=== PATIENT | male | born 1985 | race Caucasian/White ===

== ENCOUNTER → 2017-04-21 | Outpatient (CLI) | payer OTHER ==
[2017-04-21 12:22] LABS: HEMATOCRIT 46.4 % (42-52); MEAN CELL VOLUME 74.7 fL (80-100); MEAN CORPUSCULAR HEMOGLOBIN 24.8 pg (25-34); MEAN CORPUSCULAR HGB CONC 33.2 g/dl (32-36); MEAN PLATELET VOLUME 8.8 fL (7.4-10.4); PLATELET COUNT 252 K/uL (130-400); RED BLOOD COUNT 6.21 M/uL (4.7-6.1); WHITE BLOOD COUNT 7.18 K/uL (4.8-10.8)
[2017-04-21 12:49] LABS: ALT/SGPT 51 U/L (12-78); AST/SGOT 22 U/L (15-37); BLOOD UREA NITROGEN 20 mg/dl (7-18); BUN/CREATININE RATIO 19.9 (10-20); CALCIUM 9.7 mg/dl (8.5-10.1); CARBON DIOXIDE 26 mmol/L (21-32); CHLORIDE 103 mmol/L (98-107); CHOLESTEROL 250 mg/dl (0-200); CREATININE 0.98 mg/dl (0.60-1.40); GLUCOSE 94 mg/dl (70-99); POTASSIUM 3.9 mmol/L (3.5-5.1); SODIUM 138 mmol/L (136-145); TRIGLYCERIDES 196 mg/dl (0-150); VERY LOW DENSITY LIPOPROT CALC 39 mg/dl
[2017-04-21 12:54] LABS: ALKALINE PHOSPHATASE 89 U/L (45-117); CHOLESTEROL/HDL RATIO 7.6; HDL CHOLESTEROL 33 mg/dl; LDL CHOLESTEROL CALCULATED 178 mg/dl
== END | disposition home or self-care (01) ==
LOC: C.LAB 10:05
PROVIDERS: ATTEND Internal Medicine
DX: Z00.00 Encounter for general adult medical examination without abnormal findings (principal)

== ENCOUNTER 2018-08-13 07:37 | Observation (INO) ==
--- NOTE | 2018-08-09 11:08 | Anesthesiology Consultation ---
Date of Service August 09, 2018 Assessment & Plan (1) Encounter for pre-operative examination: Chart Review Chart Review: Patient seen in Pre Admission Testing Teaching & Discussion Pre-Anesthesia Teaching/Discussion Notes: Instructed NPO after midnight before surgery, except medications with 15 cc of water. Medication instructions provided according to the PAT guidelines. History Surgery Operation Date: 08/13/18 08:45 Proposed Procedures p Adenotonsillectomy, Uvulopalatopharyngoplasty, Celon Turbinate - Adilia Donovan MD s Septoplasty - Adilia Donovan MD Height/Weight Height: 5 ft 7 in Weight: 123 kg Allergies Allergy/AdvReac Type Severity Reaction Status Date / Time No Known Allergies Allergy Verified 07/29/18 10:49 Medications Home Medications Medication Instructions Recorded Confirmed Last Taken azelastine-fluticasone 1 spray INTRANASAL BID PRN 07/29/18 07/29/18 Unknown esomeprazole magnesium [Nexium] 40 mg PO DAILY PRN 07/29/18 07/29/18 Unknown Past Medical History Medical History GERD (gastroesophageal reflux disease) Sleep apnea CPAP Past Family History Family History Uncle Family history of diabetes mellitus Past Surgical History Surgical History No history of previous surgery Social History Smoking Status: Never smoker Do You Dip or Chew Tobacco: No Hx Alcohol Use: No Hx Substance Use: No substance use type: does not use Review of Systems Patient denies chest pain, shortness of breath, dyspnea on exertion, joint pain, reflux, cough, wheezing, palpitations. Physical Exam Vital Signs BP: P: R: T: SPO2:
--- NOTE | 2018-08-09 11:12 | PAT Medication Instructions ---
Medication Instructions Date of Service August 09, 2018 Home Medications azelastine-fluticasone 1 spray INTRANASAL BID NEEDED esomeprazole magnesium [Nexium] 40 mg PO DAILY NEEDED DO NOT take the morning of surgery azelastine-fluticasone 1 spray INTRANASAL BID NEEDED Take morning of surgery With a small sip of water, OTHERWISE NOTHING TO EAT OR DRINK AFTER MIDNIGHT: esomeprazole magnesium [Nexium] 40 mg PO DAILY NEEDED Other Notes If you have any questions please call us at [phone] or [phone] or [phone] or [phone]
--- NOTE | 2018-08-09 11:52 | Anesthesiology Consultation ---
Date of Service August 09, 2018 Assessment & Plan (1) Encounter for pre-operative examination: Chart Review Chart Review: Acceptable Risk for Surgery and Patient seen in Pre Admission Testing Teaching & Discussion Pre-Anesthesia Teaching/Discussion Notes: Instructed NPO after midnight before surgery,except medications with 15 cc of water. Medication instructions provided according to the PAT guidelines. History Surgery Operation Date: 08/13/18 08:45 Proposed Procedures p Adenotonsillectomy, Uvulopalatopharyngoplasty, Celon Turbinate - Adilia Donovan MD s Septoplasty - Adilia Donovan MD Height/Weight Height: 5 ft 7 in Weight: 125.3 kg Allergies Allergy/AdvReac Type Severity Reaction Status Date / Time No Known Allergies Allergy Verified 07/29/18 10:49 Medications Home Medications Medication Instructions Recorded Confirmed Last Taken azelastine-fluticasone 1 spray INTRANASAL BID PRN 07/29/18 07/29/18 Unknown esomeprazole magnesium [Nexium] 40 mg PO DAILY PRN 07/29/18 07/29/18 Unknown Past Medical History Medical History GERD (gastroesophageal reflux disease) CONTROLLED Morbid obesity Sleep apnea CPAP Past Family History Family History Uncle Family history of diabetes mellitus Past Surgical History Surgical History History of surgery REALIGNMENT OF COLLAR BONE AND UE'S AFTER FRACTURE 2/2 FALL Past Anesthesia History No Hx of Anesthesia Complications and No Family Hx of Anesthesia Complications History of PONV No Motion Sickness Screening History of Motion Sickness: No Social History Smoking Status: Never smoker Do You Dip or Chew Tobacco: No Hx Alcohol Use: No Hx Substance Use: No substance use type: does not use Exercise / Class Metabolic Activity II 4-5 Yardwork/Stairs/Walk up hill Review of Systems Patient denies chest pain, shortness of breath, dyspnea on exertion, cough, wh eezing, palpitations. Physical Exam Vital Signs VITALS BP 121/84 P 88 TEMP 97.9 SP02 95%RA RESP 16 PHYSICAL Full neck and c-spine range of motion. Full TMJ range of motion. TMD 3 finger breaths Mallampati Score 3 Dentition: intact Lungs: clear throughout to auscultation Cardiac: regular rate and rhythm, no murmurs noted, distant heart sounds Spine: normal Carotid arteries: negative bruit Extremities: no edema Large tongue Testing Electrocardiogram Date: 08/09/18 Findings: + NSR @ (87) Laboratory Results 08/09/18 11:34 08/09/18 11:34
[2018-08-09 13:20] LABS: Basophils # (auto) 0.03 K/uL (0-0.2); Basophils % (auto) 0.5 %; Eosinophils # (auto) 0.07 K/uL (0-0.5); Eosinophils % (auto) 1.1 %; Hematocrit (blood only) 44.5 % (42-52); Hemoglobin 14.5 g/dL (14.0-18.0); Immature Granulocytes # (auto) 0.02 K/uL (0.00-0.02); Immature Granulocytes % (auto) 0.3 %; Lymphocytes # (auto) 2.47 K/uL (1.2-3.4); Lymphocytes % (auto) 39.1 %; Mean Corpuscular Hgb Conc 32.6 g/dL (32-36); Mean Corpuscular Volume 76.6 fL (80-100); Mean Platelet Volume 9.3 fL (7.4-10.4); Monocytes # (auto) 0.45 K/uL (0.11-0.59); Monocytes % (auto) 7.1 %; Neutrophils # (auto) 3.28 K/uL (1.4-6.5); Neutrophils % (auto) 51.9 %; Platelet Count 239 K/uL (130-400); RDW Standard Deviation 41.6 fL (36.4-46.3); Red Blood Count 5.81 M/uL (4.7-6.1); White Blood Count 6.32 K/uL (4.8-10.8)
[2018-08-09 13:44] LABS: Calcium 9.1 mg/dl (8.5-10.1); Creatinine Clr Calc Pharmacy 128.3 ml/min; Est GFR (African American) 109.3; Est GFR (Non-African American) 94.3; Potassium 3.7 mmol/L (3.5-5.1)
--- NOTE | 2018-08-11 12:41 | History & Physical Report ---
Date of Service August 11, 2018 Assessment & Plan (1) Nasal septal deviation: adenotonsillectomy, uvulopalatoplasty, septoplasty, Celon turbinates (2) Sleep apnea: History of Present Illness Chief Complaint: sleep apnea Primary Care Provider: NO PCP 33 yo with severe sleep apnea, poor tolerance of CPAP, also has deviated septum Allergies Allergy/AdvReac Type Severity Reaction Status Date / Time No Known Allergies Allergy Verified 07/29/18 10:49 Home Medications Home Medications Medication Instructions Recorded Confirmed Type azelastine-fluticasone 1 spray INTRANASAL BID PRN 07/29/18 07/29/18 History esomeprazole magnesium [Nexium] 40 mg PO DAILY PRN 07/29/18 07/29/18 History Past Med/Surg History Medical History GERD (gastroesophageal reflux disease) CONTROLLED Morbid obesity Sleep apnea CPAP Surgical History History of surgery REALIGNMENT OF COLLAR BONE AND UE'S AFTER FRACTURE 2/2 FALL Family History Uncle Family history of diabetes mellitus Social History Preferred Language: E[place] Communication Ability: Effective Acid Remover Required: No Beliefs That Will Affect Care: None Current Living Situation: Significant Other Other Information That Helps Us Care for You: No Feels Safe at Home: Yes Safety Concerns: Feels Safe At This Time Smoking Status: Never smoker Hx Alcohol Use: No Hx Substance Use: No Physical Exam Constitutional: WD/WN, vitals as above Eyes: PERRL, conjunctivae normal, anicteric sclerae ENMT: Nose: + septum abnormality (deviated septum) Mouth: + oropharynx abnormality (large tonsils, uvula) Neck: trachea midline, no thyromegaly Respiratory: normal respiratory effort, lungs clear to auscultation Cardiovascular: RRR, no murmur, no edema Chest (Breasts): Chest: normal inspection of chest
[~2018-08-13 07:37] MED LIST: CEFAZOLIN 3000MG 65 ML IV SCH; LACTATED RINGER'S 1,000 ML IV SCH
[2018-08-13] MEDS ORDERED: ONDANSETRON INJ 2 MG/ML 2 ML VIAL IV PRN ×2 (09:03→12:05)
[2018-08-13] MEDS ORDERED: ATROPINE SULFATE 0.1 MG/ML 10ML SYR IV PRN (09:03)
[2018-08-13] MEDS ORDERED: ePHEDrine sulfate 50 MG/ML AMP IV PRN (09:03)
[2018-08-13] MEDS ORDERED: PROMETHAZINE HCL 12.5 MG in SODIUM CHLORIDE 0.9% 50 ML IV PRN ×2 (09:03→18:12)
[2018-08-13] MEDS ORDERED: ONDANSETRON INJ 2 MG/ML 2 ML VIAL ONE (09:37)
[2018-08-13] MEDS ORDERED: LIDOCAINE HCL 2% 2 ML VIAL/AMP(20MG/ML) INFIL ONE (09:37)
[2018-08-13] MEDS ORDERED: DEXAMETHASONE SOD INJ 4 MG/ML VIAL ONE (09:37)
[2018-08-13] MEDS ORDERED: fentaNYL citrate 100 MCG/2 ML VIAL ONE ×2 (09:37→11:29)
[2018-08-13] MEDS ORDERED: NEOSTIGMINE METHYLSULFATE 5 MG/5 ML SYR ONE (09:37)
[2018-08-13] MEDS ORDERED: PROPOFOL IV EMULSION 10 MG/ML 20 ML VIAL IV ONE (09:37)
[2018-08-13] MEDS ORDERED: GLYCOPYRROLATE 0.2 MG/ML VIAL ONE ×2 (09:37→11:56)
[2018-08-13] MEDS ORDERED: MIDAZOLAM HCL 1 MG/ML 2ML VIAL ONE (09:37)
[2018-08-13] MEDS ORDERED: MUPIROCIN 2% OINT 22 GM TUBE ONE (10:39)
[2018-08-13] MEDS ORDERED: LIDOCAINE/EPINE 2% 1:100,000 20ML ONE (10:39)
[2018-08-13] MEDS ORDERED: LIDOCAINE 4% INH SOLN 4 ML BTL ONE (10:39)
[2018-08-13] MEDS ORDERED: GELATIN SPONGE 12-7MM ONE (10:39)
[2018-08-13] MEDS ORDERED: EpINEphrine HCL INJ 1 MG/ML 1ML SYRINGE ONE (10:40)
--- NOTE | 2018-08-13 10:41 | History & Physical Bridge Note ---
Date of Service August 13, 2018 History & Physical Bridge Note I have examined the patient, reviewed the History & Physical and in the interval since the performance of the History & Physical I have noted the following changes of clinical significance: no changes noted
[2018-08-13] MEDS ORDERED: BUPIVACAINE/EPINEPHRINE 0.5% MPF 1:200,000 30 ML VIAL ONE (10:43)
[2018-08-13] MEDS ORDERED: ROCURONIUM BROMIDE 10 MG/ML 5 ML VIAL ONE (11:54)
[2018-08-13] MEDS ORDERED: OXYMETAZOLINE 0.05% 30 ML BTL PRN (12:05)
[2018-08-13] MEDS ORDERED: ACETAMINOPHEN/HYDROCODONE ELIX 15 ML/CUP UDP PO PRN (12:05)
[2018-08-13] MEDS ORDERED: LORazepam 1 MG/2 ML VIAL IV PRN (12:05)
[2018-08-13] MEDS ORDERED: MoRPHine SULFATE 10 MG/ML CARP/VIAL IV PRN (12:05)
--- NOTE | 2018-08-13 12:14 | Operative Report ---
Post Operative Report Pre & Post Diagnosis Operation Date: 08/13/18 08:45 Pre-Op Diagnosis: Sleep Apnea, Septal Deviation Post-Op Diagnosis: Sleep Apnea, Septal Deviation Procedure Operation Date: 08/13/18 08:45 Actual Procedures p Adenotonsillectomy, Uvulopalatopharyngoplasty,Septoplasty, celon turbinate(Not Applicable) - Adilia Donovan MD s Septoplasty, Celon Turbinate - Adilia Donovan MD Surgeon Adilia Donovan MD Pole Shaver Helper None Estimated Blood Loss 30 Findings Consistent with Post-Op Diagnosis Specimens Right and left tonsil Anesthesia Type General Complications none Disposition Accompanied Patient To Recovery: Yes Disposition: Recovery Room Indications 33-year-old with significant sleep apnea and nasal obstruction Description of Procedure He was brought to the operating room and placed in the supine position, prepped and draped in the usual sterile manner. The nose was decongested using topical cottonoids with a solution of 4 cc of 4% Xylocaine mixed with 1 cc of epinep hrine. Injection of 2% Xylocaine with 1-100,000 strength epinephrine was also used. The inferior turbinates were treated with radiofrequency volume reduction using the Webflow machine with the setting at 18 creating 5 lesions in each inferior turbinate which were then fractured laterally. The left Frederic incision was made and the mucoperichondrium was elevated off the left side of the septum the cartilage inferiorly from the vomer maxillary crest and posteriorly from the perpendicular plate of the ethmoid and removing the large bony spur projecting to the right posteriorly along with a large portion of the perpendicular plate of the ethmoid using the Jose rongeurs cutting the cartilage and ethmoid plate and small pieces. A small strip of cartilage was removed from inferiorly to allow the septum to return to the midline. The septum was closed using a continuous mattress suture of 4-0 plain gut. The mouthgag was placed in the peritonsillar area were injected with 0.5% Sensorcaine with 1-200,000 strength epinephrine. The soft palate was retracted using the red Chamorro catheter. There was minimal adenoid tissue which was ablated using the plasma wand. Tonsillectomies were performed using the plasma wand removing the tonsils from the superior pole to the inferior pole. Hemostasis was controlled using the plasma wand. At this point the uvula was resected of its anterior half using the #12 blade and Metzenbaum scissors. The flaps were cut into the palate with the V cut in the palatoglossus fold and another cut and the palatopharyngeus fold. The flap and the palatopharyngeus fold was rotated laterally into the V cut. All the mucosal edges were closed using interrupted chromic sutures and the uvula was sewn upon itself using chromic sutures. The pharynx was irrigated clean with saline. He tolerated the procedure well and was taken to the recovery area in satisfactory condition. I attest to the content of the Intraoperative Record and any orders documented therein. Any exceptions are noted below.
[2018-08-13] MEDS: fentaNYL citrate 100 MCG/2 ML VIAL IV PRN ×2 (12:45→12:58)
[2018-08-13] MEDS: HYDROmorphone INJ 1 MG/ML SYRINGE IV PRN ×2 (13:11→13:20)
--- NOTE | 2018-08-13 13:26 | Anesthesiology Progress Note ---
Date of Service August 13, 2018 Anesthesia Post Procedure Vital Signs Vital Signs: Temp Pulse Pulse Resp BP Pulse Ox 08/13/18 13:15 97 H 13 131/69 92 08/13/18 13:05 95 H 13 128/73 92 08/13/18 12:55 97 H 12 122/77 92 08/13/18 12:45 98 H 15 116/69 93 08/13/18 12:35 102 H 15 105/61 98 08/13/18 12:25 98 H 12 120/78 99 08/13/18 12:17 36.1 C L 85 12 112/77 94 08/13/18 08:02 36.7 C 87 20 131/93 98 Pain Intensity Throat: Pain Intensity: 5 Notes Mental Status: alert / awake / arousable and participated in evaluation Patient Amnestic to Procedure: Yes Nausea / Vomiting: adequately controlled Pain: adequately controlled Airway Patency, RR, SpO2: stable & adequate BP & HR: stable & adequate Hydration State: stable & adequate Anesthetic Complications: no major complications apparent and Pt Satisfied with anesthetic care
[2018-08-13] MEDS: D5W AND 1/2NSS + 20MEQ KCL 20 MEQ/1,000 ML BAG IV SCH (15:49)
[2018-08-13] MEDS: DEXAMETHASONE SOD PHOSPHATE 6 MG in SYRINGE 0 ML IV SCH ×2 (15:50→20:23)
[2018-08-13] MEDS: MoRPHine SULFATE 4 MG/ML 1 ML CARP\\VIAL IV PRN ×2 (16:00→20:06)
[2018-08-13] MEDS ORDERED: LIDOCAINE HCL VISCOUS SOLN 2% 15 ML UDC PO PRN (16:59)
[2018-08-13] MEDS: SODIUM CHLORIDE 0.65% NA SOLN 45 ML (OCEAN) PRN (20:20)
[2018-08-14] MEDS: D5W AND 1/2NSS + 20MEQ KCL 20 MEQ/1,000 ML BAG IV SCH (00:03)
[2018-08-14] MEDS: DEXAMETHASONE SOD PHOSPHATE 6 MG in SYRINGE 0 ML IV SCH ×2 (03:36→09:29)
[2018-08-14] MEDS: MoRPHine SULFATE 4 MG/ML 1 ML CARP\\VIAL IV PRN ×2 (04:54→09:34)
--- NOTE | 2018-08-14 06:52 | Discharge Summary ---
Date of Service August 14, 2018 Admission HPI Per Admitting Provider 33 yo with severe sleep apnea, poor tolerance of CPAP, also has deviated septum Admission Exam (Per Admitting) Constitutional WD/WN, vitals as above Eyes PERRL, conjunctivae normal, anicteric sclerae ENMT Nose: + septum abnormality (deviated septum) Mouth: + oropharynx abnormality (large tonsils, uvula) Neck trachea midline, no thyromegaly Respiratory normal respiratory effort, lungs clear to auscultation Cardiovascular RRR, no murmur, no edema Chest (Breasts) Chest: normal inspection of chest Discharge Data Procedures Performed Operation Date: 08/13/18 08:45 Actual Procedures p Adenotonsillectomy, Uvulopalatopharyngoplasty,(Not Applicable) - Adilia Donovan MD s Septoplasty, Celon Turbinate - Adilia Donovan MD Hospital Course (1) Nasal septal deviation: adenotonsillectomy, uvulopalatoplasty, septoplasty, Celon turbinates (2) Sleep apnea: Discharge Instructions see discharge sheets
[2018-08-14] MEDS: SODIUM CHLORIDE 0.65% NA SOLN 45 ML (OCEAN) PRN (07:16)
== END 2018-08-14 11:56 | disposition home or self-care (01) ==
LOC: 3W 07:37 → ASU 07:37

== ENCOUNTER 2024-08-20 05:01 | Inpatient (IN) ==
[2024-08-20] MEDS: SODIUM CHLORIDE 0.9% 500 ML IV ONE ×2 (05:24→05:56)
[2024-08-20 05:28] LABS: Basophils # (auto) 0.06 K/uL (0.00-0.20); Basophils % (auto) 0.7 %; Eosinophils # (auto) 0.18 K/uL (0.00-0.50); Eosinophils % (auto) 2.1 %; Hematocrit (blood only) 49.1 % (42.0-52.0); Immature Granulocytes # (auto) 0.04 K/uL (0.01-0.20); Immature Granulocytes % (auto) 0.5 %; Lymphocytes # (auto) 3.54 K/uL (1.20-3.40); Lymphocytes % (auto) 41.4 %; Mean Corpuscular Hemoglobin 24.5 pg (25.0-34.0); Mean Corpuscular Hgb Conc 32.6 g/dL (32.0-36.0); Mean Corpuscular Volume 75.2 fL (80.0-100.0); Mean Platelet Volume 8.6 fL (9.4-12.4); Monocytes # (auto) 0.62 K/uL (0.11-0.59); Monocytes % (auto) 7.3 %; Neutrophils # (auto) 4.11 K/uL (1.40-6.50); Platelet Count 269 K/uL (130-400); RDW Coefficient of Variation 16.7 % (11.5-14.5); RDW Standard Deviation 39.8 fL (36.4-46.3); Red Blood Count 6.53 M/uL (4.70-6.10); White Blood Count 8.55 K/ul (4.8-10.8)
--- NOTE | 2024-08-20 05:33 | Emergency Department Note ---
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 He reports he pain lasted approximately 20 minutes but has since resolved. He denies feeling any heart racing at this time despite his heart rate ranging from 140-160 bpm. He denies any recent illness including fevers, chills, cough, congestion, GI or symptoms. He denies any prior similar episodes. On evaluation the patient is no acute distress, afebrile with heart in the 140s- 160s and vital signs otherwise stable. Appears clinically dry. Exam is otherwise unremarkable. EKG demonstrates atrial fibrillation with RVR at 154 without overt acute ischemia. Chest x-ray demonstrates vascular prominence likely related to patient's RVR. WBC within normal limits. H/H and platelets within normal limits. Chemistry without metabolic acidosis. LFTs unremarkable. Lipase is normal. TSH 5.1 with free T4 within normal limits. Initial high-sensitivity troponin 13. Patient initially with 500 cc normal saline with some improvement in heart rate to 130s-140s. He was given 5 mg of IV Lopressor x 2 with improvement in rate to the 90s-100s. He was given 25 mg of PO metoprolol for continued rate control. CHADsVasc 0. Delta HS troponin increased to 29 likely related to the patient's RVR. However given the patient did report chest pain prior to arrival agrees with plan for admission for further management. ASA ordered. Case was discussed [place]. Rob, [facility] [place], who will evaluate the patient for admission. Further management per admitting team. Triage Nursing notes reviewed and agree them. Prior/external medical records reviewed Vital Signs: reviewed Differential diagnosis: Cardiac ischemia, aortic dissection, pulmonary embolism, pneumothorax, pneumonia, pericarditis, myocarditis, esophageal rupture, GERD, cholecystitis, pancreatitis, musculoskeletal, as well as other pathologies. ER treatment provided: See below. Diagnostics interpreted by me: ECG: Atrial fibrillation, RVR, 154 bpm, no ectopy, nonspecific ST abnormality, no overt ST elevation or depression, QTc 486, QRS 70. Cardiac Monitoring: An order for continuous cardiac monitoring was placed and demonstrated Atrial fibrillation, RVR, 154 bpm, no ectopy. Laboratory studies: See below Imaging studies: See below Consultation(s): Case was discussed with Dr. Rob, [facility] [place], who will evaluate the patient for admission. 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 He reports he pain lasted approximately 20 minutes but has since resolved. He denies feeling any heart racing at this time despite his heart rate ranging from 140-160 bpm. He denies any recent illness including fevers, chills, cough, congestion, GI or symptoms. He denies any prior similar episodes. ROS: See above HPI for pertinent positives & negatives. A total of 10 systems reviewed and were otherwise negative. VITALS:See Below PHYSICAL EXAMINATION: GENERAL: Awake, alert, well-appearing, in no distress, BMI 39.4. HENT: Normocephalic, atraumatic. Oropharynx with dry mucous membranes and otherwise unremarkable. EYES: Normal conjunctiva. Sclera non-icteric. NECK: Supple. No nuchal rigidity. FROM. No JVD. RESPIRATORY: Clear to auscultation. CARDIAC: Tachycardic rate, irregular rhythm. Extremities warm and well perfused. Pulses equal. ABDOMEN: Soft, non-distended. No tenderness to palpation. No rebound or guarding. No masses. MUSCULOSKELETAL: Chest examination reveals no tenderness. The back is symmetrical on inspection without obvious abnormality. There is no CVA tenderness to palpation. No joint edema. LOWER EXTREMITIES: Calves are equal size bilaterally and non-tender. No edema. No discoloration. NEURO: Normal sensorium. No sensory or motor deficits noted. SKIN: No rash or jaundice noted. ED COURSE: Critical Care: I have personally spent greater than 35 minutes of critical care time in the direct management of this patient. This includes bedside care, interpretation of diagnostic studies, and testing, discussion with consultants, patient, and family members, and other required patient management activities. This 35 minutes is in excess of all separately billable procedures. Govind Walsh MD Past Med/Surg History Problem List (Updated 08/20/24 @ 07:27 by Govind Walsh MD) Elevated troponin (Acute) Chest pain (Acute) New onset atrial fibrillation (Acute) Atrial fibrillation with rapid ventricular response (Acute) Numbness of right foot Anxiety GERD (gastroesophageal reflux disease) CONTROLLED Nasal septal deviation Sleep apnea Obesity (Acute) Dyslipidemia (Acute) Allergic rhinitis (Acute) Encounter for health maintenance examination Venous insufficiency Medical History URI (upper respiratory infection) Folliculitis Morbid obesity Sleep apnea CPAP Surgical History History of surgery REALIGNMENT OF COLLAR BONE AND UE'S AFTER FRACTURE 2/2 FALL Family History Uncle Family history of diabetes mellitus Father Diabetes Myocardial infarction Aunt Breast cancer Other Allergies Heart disease No family history of adverse response to anesthesia No family history of bleeding disorder Denies family history of Ovarian cancer Prostate cancer Colorectal cancer Social History Smoking Status: Never smoker Second Hand Exposure: No; Do You Dip or Chew Tobacco: No; Hx Alcohol Use: No Hx Substance Use: No Preferred Language: Scottish Communication Ability: Effective Visual Impairment: Limited 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 Beliefs That Will Affect Care: None marital status: Single marital status details: has a girlfriend Current Living Situation: Significant Other current occupational status: employed current occupation: pharmacist Feels Safe at Home: Yes Assistive Devices: CPAP Allergies Allergies Allergy/AdvReac Type Severity Reaction Status Date / Time No Known Drug Allergies Allergy Verified 12/14/23 08:27 Home Meds Previous Rx's Medication Instructions Recorded cetirizine 10 mg tablet 10 mg PO DAILY PRN allergy 09/20/23 symptoms #90 tabs esomeprazole magnesium 40 mg 40 mg PO DAILY PRN Acid Reflux #90 12/14/23 capsule,delayed release (Nexium) caps fluticasone propionate 50 1 spray intranasal BID PRN allergy 12/14/23 mcg/actuation nasal symptoms #16 grams spray,suspension (Flonase Allergy Relief) meloxicam 7.5 mg tablet 7.5 mg PO BID #180 tabs 12/14/23 montelukast 10 mg tablet 10 mg PO QPM PRN allergic symptoms 12/14/23 (Singulair) #90 tabs valacyclovir 1 gram tablet 2,000 mg (2 x 1 gram) PO BID PRN 12/14/23 (Valtrex) cold sores 8 days #30 tabs Results & Data (ED) Vital Signs Vital Signs - 24 hr 08/20/24 05:01 08/20/24 05:04 08/20/24 05:09 Temperature 36.6 C Temperature Source Oral Pulse Rate 138 H 147 H Pulse Rate [Apical] Pulse Rhythm [Apical] Respiratory Rate 20 Respiratory Effort / Characteristics Respiratory Depth Normal Respiratory Pattern Blood Pressure Blood Pressure [Right Arm] Blood Pressure Mean [Right Arm] Blood Pressure Position [Right Arm] Pulse Oximetry 97 99 Oxygen Delivery Method Room Air Room Air Sepsis Recent Fever Within 48 Hours No Sepsis New/Unexplained Change in Mental Status No Sepsis Action Taken by Nursing No Action Required 08/20/24 05:12 08/20/24 05:13 08/20/24 05:53 Temperature Temperature Source Pulse Rate Pulse Rate [Apical] 145 H 155 H Pulse Rhythm [Apical] Irregular Respiratory Rate 20 18 Respiratory Effort / Characteristics Non-Labored Spontaneous Non-Labored Spontaneous Respiratory Depth Normal Normal Respiratory Pattern Regular Regular Blood Pressure Blood Pressure [Right Arm] 126/84 123/74 Blood Pressure Mean [Right Arm] 98 90 Blood Pressure Position [Right Arm] Sitting Pulse Oximetry 96 96 98 Oxygen Delivery Method Room Air Room Air Room Air Sepsis Recent Fever Within 48 Hours Sepsis New/Unexplained Change in Mental Status Sepsis Action Taken by Nursing 08/20/24 05:58 08/20/24 06:19 08/20/24 06:20 Temperature Temperature Source Pulse Rate 147 H 108 H 106 H Pulse Rate [Apical] Pulse Rhythm [Apical] Respiratory Rate Respiratory Effort / Characteristics Respiratory Depth Respiratory Pattern Blood Pressure 118/92 Blood Pressure [Right Arm] Blood Pressure Mean [Right Arm] Blood Pressure Position [Right Arm] Pulse Oximetry Oxygen Delivery Method Sepsis Recent Fever Within 48 Hours Sepsis New/Unexplained Change in Mental Status Sepsis Action Taken by Nursing 08/20/24 06:44 Temperature Temperature Source Pulse Rate 116 H Pulse Rate [Apical] Pulse Rhythm [Apical] Respiratory Rate Respiratory Effort / Characteristics Respiratory Depth Respiratory Pattern Blood Pressure Blood Pressure [Right Arm] Blood Pressure Mean [Right Arm] Blood Pressure Position [Right Arm] Pulse Oximetry Oxygen Delivery Method Sepsis Recent Fever Within 48 Hours Sepsis New/Unexplained Change in Mental Status Sepsis Action Taken by Nursing Laboratory Data Attestation: I reviewed the patient's lab results. 08/20/24 05:15 08/20/24 05:15 Lab Results 08/20/24 08/20/24 08/20/24 Range/Units 05:15 05:21 06:33 WBC 8.55 (4.8-10.8) K/ul RBC 6.53 H (4.70-6.10) M/uL Hgb 16.0 (14.0-18.0) g/dl POC Hgb 17.0 (14.0-18.0) g/dl Hct 49.1 (42.0-52.0) % POC Hct 50 (42-52) % MCV 75.2 L (80.0-100.0) fL MCH 24.5 L (25.0-34.0) pg MCHC 32.6 (32.0-36.0) g/dL RDW Std Deviation 39.8 (36.4-46.3) fL RDW Coeff of Tomás 16.7 H (11.5-14.5) % Plt Count 269 (130-400) K/uL MPV 8.6 L (9.4-12.4) fL Immature Gran % (Auto) 0.5 % Neut % (Auto) 48.0 % Lymph % (Auto) 41.4 % [place] % (Auto) 7.3 % Eos % (Auto) 2.1 % Baso % (Auto) 0.7 % Neut # (Auto) 4.11 (1.40-6.50) K/uL Lymph # (Auto) 3.54 H (1.20-3.40) K/uL [place] # (Auto) 0.62 H (0.11-0.59) K/uL Eos # (Auto) 0.18 (0.00-0.50) K/uL Baso # (Auto) 0.06 (0.00-0.20) K/uL Immature Gran # (Auto) 0.04 (0.01-0.20) K/uL PT 10.2 (9.0-12.0) Seconds INR 0.9 (0.9-1.1) POC Sodium 141 (135-144) mmol/L Sodium 137 (136-145) mmol/L POC Potassium 3.6 (3.3-5.0) mmol/L Potassium 3.7 (3.5-5.1) mmol/L POC Chloride 104 (101-112) mmol/L Chloride 105 (98-107) mmol/L Carbon Dioxide 27 (21-32) mmol/L POC Total CO2 25 (24-31) mmol/L Anion Gap 5 (3-11) POC Anion Gap 17.0 (16-25) mmol/L POC BUN 20 H (7-18) mg/dl BUN 19 (6-23) mg/dl Creatinine 1.08 (0.6-1.4) mg/dl POC Creatinine 1.1 (0.6-1.3) mg/dl Est Cr Clr Drug Dosing 124.0 ml/min eGFR 88.97 BUN/Creatinine Ratio 17.6 (10-20) Glucose 97 (70-99(Fasting)) mg/dl POC Glucose (other) 97 (70-99) mg/dl Calcium 9.4 (8.6-10.3) mg/dl POC Ioniz Calcium Danny 1.17 (1.12-1.32) mmol/l Phosphorus 3.0 (2.5-4.9) mg/dl Magnesium 2.2 (1.7-2.4) mg/dl Total Bilirubin 0.4 (0.2-1.0) mg/dl AST 28 (13-39) U/L ALT 36 (7-52) U/L Alkaline Phosphatase 74 (34-104) U/L Troponin I High Sens 13.0 29.6 H D (0-20) pg/ml Total Protein 7.8 (6.0-8.3) gm/dl Albumin 4.6 (3.4-5.0) gm/dl Globulin 3.2 (2.5-4.0) gm/dl Albumin/Globulin Ratio 1.4 (0.9-2) Lipase 23 (11-82) U/L TSH 5.183 H (0.300-4.500) uIu/ml Free T4 0.73 (0.61-1.60) ng/dl Administered Medications Discontinued Medications Aspirin (Aspirin Chew 324 Mg) 324 mg PO NOW STA Stop: 08/20/24 07:16 Last Admin: 08/20/24 07:22 Dose: 324 mg Documented By: ANKIT Sodium Chloride (Nss) 500 mls @ 999 mls/hr IV .Q31M ONE Stop: 08/20/24 05:52 Last Infusion: 08/20/24 05:53 Dose: Infused Documented By: Admin: 08/20/24 05:24 Dose: 999 mls/hr Documented By: EMB Sodium Chloride (Nss) 500 mls @ 999 mls/hr IV .Q31M ONE Stop: 08/20/24 06:25 Last Infusion: 08/20/24 06:35 Dose: Infused Documented By: Admin: 08/20/24 05:56 Dose: 999 mls/hr Documented By: GERRY Metoprolol Tartrate (Metoprolol Tartrate 1 Mg/Ml Vial) 5 mg IV NOW STA Stop: 08/20/24 05:50 Last Admin: 08/20/24 05:58 Dose: 5 mg Documented By: GERRY Metoprolol Tartrate (Metoprolol Tartrate 1 Mg/Ml Vial) 5 mg IV NOW STA Stop: 08/20/24 06:01 Last Admin: 08/20/24 06:20 Dose: 5 mg Documented By: GERRY Metoprolol Tartrate (Metoprolol Tartrate 50 Mg Tab) 25 mg PO NOW STA Stop: 08/20/24 06:36 Last Admin: 08/20/24 06:44 Dose: 25 mg Documented By: EMB Imaging Data Radiologist's Impression: Chest X-Ray 08/20/24 05:10 EXAM: XR chest 1V portable CLINICAL HISTORY: Chest pain, nonspecific TECHNIQUE: An X-ray image of the chest is obtained in AP projection. COMPARISON: No prior studies are available for comparison. FINDINGS: Pulmonary Parenchyma: Bilateral prominent bronchopulmonary vasculature. Right lower zone atelectatic band. No evidence of consolidation, collapse, or focal opacities. No pulmonary nodules are identified. No evidence of pleural effusion or pleural thickening. Heart and Mediastinum: Heart size and shape are normal. No mediastinal widening or masses. No hilar or mediastinal lymphadenopathy. Bony Thorax: Bony thorax appears intact without fractures or deformities. Soft Tissues: Soft tissues overlying the chest wall are unremarkable. IMPRESSION: 1. Bilateral prominent bronchopulmonary vasculature. 2. Right lower zone atelectatic band. 3. No acute cardiopulmonary abnormalities are identified. Electronically signed by Luis E Chowdary 08-20-2024 06:32 AM Discharge Plan Visit Data Chief Complaint: Tachycardia Stated Complaint: TACHYCARDIA ED Provider: Govind Walsh Discharge Problem: Atrial fibrillation with rapid ventricular response, New onset atrial fibrillation, Chest pain, Elevated troponin Patient Disposition: Being Evaluated by Hospitalist Forms Stand Alone Forms: [facility] Prescriptions Prescriptions: No Action cetirizine 10 mg tablet 10 mg PO DAILY PRN (Reason: allergy symptoms) Qty: 90 1RF esomeprazole magnesium [Nexium] 40 mg capsule,delayed release(DR/EC) 40 mg PO DAILY PRN (Reason: Acid Reflux) Qty: 90 3RF fluticasone propionate [Flonase Allergy Relief] 50 mcg/actuation spray,suspension 1 spray intranasal BID PRN (Reason: allergy symptoms) Qty: 16 5RF Rx Instructions: administer into each nostril meloxicam 7.5 mg tablet 7.5 mg PO BID Qty: 180 1RF Rx Instructions: Never on empty stomach with plenty of water montelukast [Singulair] 10 mg tablet 10 mg PO QPM PRN (Reason: allergic symptoms) Qty: 90 3RF valacyclovir [Valtrex] 1 gram tablet 2,000 mg PO BID PRN (Reason: cold sores) 8 Days Qty: 30 5RF Referrals Referrals: Lore Guzman MD [Primary Care Provider] - Discharge Problem: Chest pain Qualifiers: Chest pain type: unspecified Qualified Code(s): R07.9 - Chest pain, unspecified
[2024-08-20 05:34] LABS: iSTAT Creatinine 1.1 mg/dl (0.6-1.3); iSTAT Ionized Calcium 1.17 mmol/l (1.12-1.32); iSTAT Potassium 3.6 mmol/L (3.3-5.0)
[2024-08-20 05:44] LABS: Albumin Globulin Ratio 1.4 (0.9-2); Albumin Level 4.6 gm/dl (3.4-5.0); BUN Creatinine Ratio 17.6 (10-20); Bilirubin,Total 0.4 mg/dl (0.2-1.0); Calcium 9.4 mg/dl (8.6-10.3); Globulin 3.2 gm/dl (2.5-4.0); Magnesium 2.2 mg/dl (1.7-2.4); Potassium 3.7 mmol/L (3.5-5.1); Total Protein 7.8 gm/dl (6.0-8.3)
[2024-08-20] MEDS: METOPROLOL TARTRATE 1 MG/ML VIAL IV STA ×3 (05:58→12:50)
[2024-08-20 05:59] LABS: Thyroid Stimulating Hormone 5.183 uIu/ml (0.300-4.500)
[2024-08-20 06:00] LABS: INR 0.9 (0.9-1.1); Prothrombin Time 10.2 Seconds (9.0-12.0)
--- NOTE | 2024-08-20 06:32 | XRay Report ---
EXAM: XR chest 1V portable CLINICAL HISTORY: Chest pain, nonspecific TECHNIQUE: An X-ray image of the chest is obtained in AP projection. COMPARISON: No prior studies are available for comparison. FINDINGS: Pulmonary Parenchyma: Bilateral prominent bronchopulmonary vasculature. Right lower zone atelectatic band. No evidence of consolidation, collapse, or focal opacities. No pulmonary nodules are identified. No evidence of pleural effusion or pleural thickening. Heart and Mediastinum: Heart size and shape are normal. No mediastinal widening or masses. No hilar or mediastinal lymphadenopathy. Bony Thorax: Bony thorax appears intact without fractures or deformities. Soft Tissues: Soft tissues overlying the chest wall are unremarkable. IMPRESSION: 1. Bilateral prominent bronchopulmonary vasculature. 2. Right lower zone atelectatic band. 3. No acute cardiopulmonary abnormalities are identified. Electronically signed by Luis E Chowdary 08-20-2024 06:32 AM
[2024-08-20 06:35] LABS: T4 Free Thyroxine 0.73 ng/dl (0.61-1.60)
[2024-08-20] MEDS: METOPROLOL TARTRATE 50 MG TAB PO STA (06:44)
[2024-08-20] MEDS: ASPIRIN CHEW 324 MG PO STA (07:22)
--- NOTE | 2024-08-20 08:08 | History & Physical Report ---
Date of Service August 20, 2024 Assessment & Plan (1) New onset atrial fibrillation: (2) Atrial fibrillation with rapid ventricular response: (3) Sleep apnea: Plan Patient presented for chest pain and chest palpitations that woke him from sleep on the morning of 08/20. New onset A-fib RVR on arrival. Unclear etiology for onset, but leading causes are genetic (both mother and father had A-fib in their early 40s/50s), sleep apnea induced, and idiopathic. While patient initially responded to Lopressor 5 mg IV x 2, dropping to 90 bpm, his heart rate then returned to 130s to 150 bpm range later in the day. If refractory to metoprolol, will trial diltiazem. #New onset atrial fibrillation with RVR ECG on arrival revealed atrial fibrillation with RVR to 154 bpm Metoprolol tartrate 5 mg IV x 2 Metoprolol tartrate 25 mg p.o. x 1 Patient has remained hemodynamically stable in the ED Additional Lopressor 5 mg IV PRN on-call for HR >140bpm TSH mildly elevated at 5.1, however free T4 is WNL No recent alcohol use No infectious symptoms No new life stressors Echocardiogram ordered, pending Continuous telemetry monitoring [id number]: 0 Patient was informed of risks/benefits of anticoagulation, would like to avoid anticoagulation at this time Start metoprolol succinate 50 mg p.o. BID Start aspirin 81 mg p.o. daily #Elevated troponin Troponin 13.0 -> 29.6 -> 45.6 on arrival; trend q6h to peak Aspirin 324 mg p.o. x 1 given in the ED While patient endorses chest pain upon waking the morning of 08/20, he reports that he is chest pain free (0 out of 10) at time of admission Suspect secondary to new onset a fib RVR, but will continue to monitor for now #Sleep apnea Unclear if contributory as patient reports good compliance with CPAP at home May use own CPAP while inpatient Disposition: Admit to PCU telemetry Heart healthy diet VTE PPx: Lovenox 40 mg SQ q24h History of Present Illness Chief Complaint: Tachycardia Primary Care Provider: Lore Guzman MD Teresa is a pleasant 39-year-old male with PMH of GERD, anxiety, sleep apnea, and dyslipidemia. He presented on the morning of 08/20 after he awoke from sleep at 2 AM with pounding in his chest. He had both chest pain on the upper left side as well as heart palpitations. He reports the pain was constant, and characterized it as a dull, achy pain with occasional squeezing. The pain lasted 15 to 20 minutes. Per home pulse ox, his heart rate was going around 150 bpm. He rated it 8/10 at worst. He then tried to go back to sleep, however it returned around 3 AM he decided to come to the hospital. The pain completely resolved by the time he reached the ED. He is chest pain-free at time of admission (0/10). No radiation to the left shoulder, down the left arm, or to the back. Patient did not take any pain medicine prior to coming into the hospital. He denies SOB or pleuritic CP with any of his symptoms. Patient did not take any regular morning medicines today. His only medications are for allergies, and Nexium as needed. No prior history of atrial fibrillation. However both his mom and dad have history of atrial fibrillation; his mom developed atrial fibrillation in her early 40s, and his father developed atrial fibrillation in his 50s. Additionally, the patient's father had significant cardiac issues; 4 MIs and a few strokes (none of which occurred before the age of 55). No family members have from cardiac related illness before the age of 55, to the patient's knowledge. Patient denies smoking, tobacco use, or recent alcohol use. He denies any alcohol use in the past several days; no history of heavy drinking. No new life stressors. No PMH of diabetes, CHF, ND, DVT/PE, stroke, thyroid issues, or HTN. He does have a history of sleep apnea, and reports good compliance with using his CPAP nightly. No supplemental oxygen at baseline. No sick contacts. Patient's vitals are stable at time admission; heart rate 96 bpm. ED course: NSS 500 mL IV x 2 Metoprolol tartrate 5 mg IV x 2 Metoprolol titrate 25 mg p.o. Aspirin 324 mg p.o. ROS: Patient endorses feeling hot upon waking, chest pain (resolved), and chest palpitations (resolved). Patient denies fever, chills, night-sweats, dizziness, lightheadedness, CHRISTINA, rashes, tick bites, pleuritic CP, SOB, cough, abdominal pain, N/V/D, changes in urinary/bowel habits, or numbness/tingling in the arms or legs. Allergies Allergy/AdvReac Type Severity Reaction Status Date / Time No Known Drug Allergies Allergy Verified 12/14/23 08:27 Home Medications Medication Instructions Recorded Confirmed Type cetirizine 10 mg tablet 10 mg PO DAILY PRN allergy 09/20/23 08/20/24 Rx symptoms #90 tabs esomeprazole magnesium 40 mg 40 mg PO DAILY PRN Acid Reflux #90 12/14/23 08/20/24 Rx capsule,delayed release (Nexium) caps fluticasone propionate 50 1 spray intranasal BID PRN allergy 12/14/23 08/20/24 Rx mcg/actuation nasal symptoms #16 grams spray,suspension (Flonase Allergy Relief) montelukast 10 mg tablet 10 mg PO QPM PRN allergic symptoms 12/14/23 08/20/24 Rx (Singulair) #90 tabs Past Med/Surg History Problem List (Updated 08/20/24 @ 07:27 by Govind Walsh MD) Elevated troponin (Acute) Chest pain (Acute) New onset atrial fibrillation (Acute) Atrial fibrillation with rapid ventricular response (Acute) Numbness of right foot Anxiety GERD (gastroesophageal reflux disease) CONTROLLED Nasal septal deviation Sleep apnea Obesity (Acute) Dyslipidemia (Acute) Allergic rhinitis (Acute) Encounter for health maintenance examination Venous insufficiency Medical History URI (upper respiratory infection) Folliculitis Morbid obesity Sleep apnea CPAP Surgical History History of surgery REALIGNMENT OF COLLAR BONE AND UE'S AFTER FRACTURE 2/2 FALL Family History Uncle Family history of diabetes mellitus Father Diabetes Myocardial infarction Aunt Breast cancer Other Allergies Heart disease No family history of adverse response to anesthesia No family history of bleeding disorder Denies family history of Ovarian cancer Prostate cancer Colorectal cancer Social History Smoking Status: Never smoker Second Hand Exposure: No; Do You Dip or Chew Tobacco: No; Hx Alcohol Use: No Hx Substance Use: No Preferred Language: [place] Communication Ability: Effective Visual Impairment: Limited Shuffle Board Operator Required: No Beliefs That Will Affect Care: None marital status: Single marital status details: has a girlfriend Current Living Situation: Significant Other current occupational status: employed current occupation: pharmacist Feels Safe at Home: Yes Assistive Devices: CPAP Review of Systems Review of Systems: See HPI above Physical Exam Physical Exam: General: no acute distress; pleasant affect; significant other at bedside; non- toxic appearing; well-nourished; cooperative; SpO2 98% on RA HEENT: normocephalic, atraumatic; no scleral icterus; PERRLA w/ EOMs intact; vision and hearing grossly intact Neck: supple; no lymphadenopathy; trachea midline Skin: warm, dry without signs of tenting; no cyanosis; no rashes, bruising, lesions, or erythema noted CV: chest wall NTP; irregularly irregular rhythm at 96 bpm; S1/S2 normal; no murmurs/rubs/gallops; pulses intact and symmetric at radial, DP, and PT Lungs: no acute respiratory distress; symmetrical chest wall expansion; clear breath sounds across all lung edge w/o adventitious sounds; no wheezing ABD: Soft, NTP; BS present; no rebound/guarding; no distention MSK: no tics or fasciculations; no edema noted in the LEs b/l, nonerythematous Neuro: A&Ox3; normal mood and affect; fluent speech; no focal deficits; sensation grossly intact in the LEs b/l Results & Data Results & Data Vital Signs (Past 12 Hours) Vital Signs Temp Pulse Pulse Resp BP BP Pulse Ox 08/20/24 07:30 118/89 08/20/24 07:09 96 H 12 98 08/20/24 07:00 147/110 H 08/20/24 06:44 116 H 08/20/24 06:20 106 H 118/92 08/20/24 06:19 108 H 08/20/24 05:58 147 H 08/20/24 05:53 155 H 18 123/74 98 08/20/24 05:13 145 H 20 126/84 96 08/20/24 05:12 96 08/20/24 05:09 147 H 08/20/24 05:04 36.6 C 138 H 20 99 08/20/24 05:01 97 O2 Del Method 08/20/24 07:30 08/20/24 07:09 08/20/24 07:00 08/20/24 06:44 08/20/24 06:20 08/20/24 06:19 08/20/24 05:58 08/20/24 05:53 Room Air 08/20/24 05:13 Room Air 08/20/24 05:12 Room Air 08/20/24 05:09 08/20/24 05:04 Room Air 08/20/24 05:01 Room Air Laboratory Results Abnormal lab results 08/20/24 08/20/24 08/20/24 Range/Units 05:15 05:21 06:33 RBC 6.53 H (4.70-6.10) M/uL MCV 75.2 L (80.0-100.0) fL MCH 24.5 L (25.0-34.0) pg RDW Coeff of Tomás 16.7 H (11.5-14.5) % MPV 8.6 L (9.4-12.4) fL Lymph # (Auto) 3.54 H (1.20-3.40) K/uL Cloud # (Auto) 0.62 H (0.11-0.59) K/uL POC BUN 20 H (7-18) mg/dl Troponin I High Sens 29.6 H D (0-20) pg/ml TSH 5.183 H (0.300-4.500) uIu/ml Diagnostic Findings Chest X-Ray 08/20/24 05:10 EXAM: XR chest 1V portable CLINICAL HISTORY: Chest pain, nonspecific TECHNIQUE: An X-ray image of the chest is obtained in AP projection. COMPARISON: No prior studies are available for comparison. FINDINGS: Pulmonary Parenchyma: Bilateral prominent bronchopulmonary vasculature. Right lower zone atelectatic band. No evidence of consolidation, collapse, or focal opacities. No pulmonary nodules are identified. No evidence of pleural effusion or pleural thickening. Heart and Mediastinum: Heart size and shape are normal. No mediastinal widening or masses. No hilar or mediastinal lymphadenopathy. Bony Thorax: Bony thorax appears intact without fractures or deformities. Soft Tissues: Soft tissues overlying the chest wall are unremarkable. IMPRESSION: 1. Bilateral prominent bronchopulmonary vasculature. 2. Right lower zone atelectatic band. 3. No acute cardiopulmonary abnormalities are identified. Electronically signed by Lucinda Chowdaryyd 08-20-2024 06:32 AM ECG Additional Comments: ECG revealed atrial fibrillation with RVR at 154 bpm on arrival; QTc 486 Code Status & VTE Plan Code Status Full code Supervising Physician Co-Signing Physician Notes Patient seen and examined, chart reviewed, case discussed with Brendon Doe PA-C and I agree with the assessment and plan as above except as otherwise noted Labs and images reviewed 39yo M who presents with chest discomfort and palpitations lasting 15-20 minutes, radiating to left chest wall. No pain down arm. Resolved after 20 minutes. Recurrent palpitations 3am. No prior hx afib. No history of recent ETOH use No recent illness FHX of afib in mother in 40s, father in 50s Father with MIs after age 50 Pt with history of TRISTEN on CPAP, good compliance Mg 2.2 on admit Recieved asa full dose for chest pain. Was chest pain free on admit assessment In ER received MTP 5mg IV x2 in the ER + 25mg PO x1 in the ER with improvement to 90s, subsequently returned to rates 120s in the afternoon. Trop 13 --> 29 --> 45. Chest pain free. Suspect demand 2/2 RVR. Trended every 6 hours overnight ECHO with no wall motion abnormalities and normal EF Patient seen at bedside, remains pain-free, asymptomatic despite heart rate [id number]. No lightheadedness or dizziness. No chest pain/shortness of breath. Agreeable to admission overnight for rate control and medication titration [id number] 0. No history of HTN, ND, CHF, DM2. Did discuss risk of stroke with A-fib. Patient expresses understanding that there is an increased risk of stroke with atrial fibrillation, and that the [id number] of 0 anticoagulation is typically not recommended. He reports that he understands risk and would prefer to avoid blood thinners if possible anyway and will defer anticoagulation of admission. Will be starting a baby aspirin daily. 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 Additional 5 mg IV x 1 metoprolol given and has been continued on metoprolol succinate 50 mg p.o. twice daily. If continues to have inadequate rate control given reportedly normal EF can trial an addition of diltiazem. Blood pressure normal at time of assessment Optimize magnesium 2.0, potassium 4.0. Magnesium at goal on admission, calcium supplement x 1 given Free T4 normal Agree with above PG Care Time/CCT Total # of Minutes Spent Total Time Spent with Patient: Total time spent is greater than 50% in coordination of care (as documented) at patient's floor/unit and/or counseling patient: Coding [place] [address] INT INP/OBS CARE 3/75MIN Patient Type Established History Comprehensive Exam Comprehensive Medical Decision Making High Complexity Diagnoses New onset atrial fibrillation I48.91 Atrial fibrillation with rapid ventricular response I48.91 Sleep apnea G47.30
[2024-08-20 11:13] VITALS: O2SAT 97
--- NOTE | 2024-08-20 11:38 | XCELERA ---
[id number]
[2024-08-20] MEDS ORDERED: METOPROLOL TARTRATE 1 MG/ML VIAL IV PRN (12:44)
[2024-08-20] MEDS: METOPROLOL TARTRATE 1 MG/ML VIAL IV ONE (12:53)
--- NOTE | 2024-08-20 13:17 | Electrocardiogram Report ---
Test Reason : Blood Pressure : */* mmHG Vent. Rate : 110 BPM Atrial Rate : * BPM P-R Int : * ms QRS Dur : 70 ms QT Int : 326 ms P-R-T Axes : * 19 7 degrees QTcB Int : 441 ms Atrial fibrillation with rapid ventricular response Low voltage QRS Abnormal ECG When compared with ECG of 20-Aug-2024 05:08, (unconfirmed) No significant change was found Confirmed by Barrett Grant ([id number]) on 08/20/2024 1:17:14 PM Referred By: REFERRED SELF Confirmed By: Barrett Grant
--- NOTE | 2024-08-20 13:17 | Electrocardiogram Report ---
Test Reason : Blood Pressure : */* mmHG Vent. Rate : 154 BPM Atrial Rate : * BPM P-R Int : * ms QRS Dur : 70 ms QT Int : 304 ms P-R-T Axes : * 12 -38 degrees QTcB Int : 486 ms Atrial fibrillation with rapid ventricular response Nonspecific ST abnormality Abnormal ECG When compared with ECG of 09-Aug-2018 11:41, Atrial fibrillation has replaced Sinus rhythm Vent. rate has increased by [address] now depressed in Anterolateral leads Confirmed by Barrett Grant ([id number]) on 08/20/2024 1:16:25 PM Referred By: REFERRED SELF Confirmed By: Barrett Grant
[2024-08-20] MEDS: POTASSIUM CHLORIDE CRTAB 20 MEQ TABCR PO STA (13:54)
[2024-08-20] MEDS: METOPROLOL SUCC 50MG EXT REL TAB PO ONE (13:54)
[2024-08-20] MEDS ORDERED: CETIRIZINE HCL 10 MG TABLET PO PRN (14:31)
[2024-08-20] MEDS ORDERED: FLUTICASONE PROPIONATE NA SPR 16 GM BTL PRN (14:31)
[2024-08-20] MEDS ORDERED: ACETAMINOPHEN 325 MG TAB PO PRN (14:31)
[2024-08-20] MEDS ORDERED: PANTOprazole 40 MG TAB PO PRN (14:34)
[2024-08-20 15:15] VITALS: BP 126/86; RESP 18; TEMP 98.1
--- NOTE | 2024-08-20 17:59 | Discharge Summary ---
Discharge Summary Date of Service August 20, 2024 Principal Dx & Hospital Course #1 = Principal Diagnosis (1) New onset atrial fibrillation: (2) Atrial fibrillation with rapid ventricular response: (3) Sleep apnea: Plan Patient presented for chest pain and chest palpitations that woke him from sleep on the morning of 08/20. New onset A-fib RVR on arrival. Unclear etiology for onset, but leading causes are genetic (both mother and father had A-fib in their early 40s/50s), sleep apnea induced, and idiopathic. While patient initially responded to Lopressor 5 mg IV x 2, dropping to 90 bpm, his heart rate then returned to 130s to 150 bpm range later in the day. Subsequently received additional metoprolol and was switched to metoprolol succinate. Converted to sinus and continue to do well over several hours. Process benefits of discharge home versus observation overnight for additional recurrent A-fib and medication adjustments were discussed with patient. Strongly preferred discharge home and as he was in normal sinus rhythm, normotensive, and tolerating metoprolol succinate well felt this was reasonable. No provoking illness. No alcohol use Does have a history of sleep apnea and strong family history of early A-fib in the family [id number] 0. Her/benefits of anticoagulation were reviewed with patient, on shared decision making and with chest VASc of 0 anticoagulation was not recommended. Was started on aspirin 81 mg daily Minimal troponin elevated elevation, likely demand. Echo with EF 60 to 65%, no wall motion abnormalities. To do as outpatient: 1. Continue metoprolol succinate 50 mg p.o. twice daily 2. Continue aspirin 81 mg daily 3. Follow-up with cardiology 4. Routine follow-up with PCP Return precautions discussed. Admission HPI Per Admitting Provider Teresa is a pleasant 39-year-old male with PMH of GERD, anxiety, sleep apnea, and dyslipidemia. He presented on the morning of 08/20 after he awoke from sleep at 2 AM with pounding in his chest. He had both chest pain on the upper left side as well as heart palpitations. He reports the pain was constant, and characterized it as a dull, achy pain with occasional squeezing. The pain lasted 15 to 20 minutes. Per home pulse ox, his heart rate was going around 150 bpm. He rated it 8/10 at worst. He then tried to go back to sleep, however it returned around 3 AM he decided to come to the hospital. The pain completely resolved by the time he reached the ED. He is chest pain-free at time of admission (0/10). No radiation to the left shoulder, down the left arm, or to the back. Patient did not take any pain medicine prior to coming into the hospital. He denies SOB or pleuritic CP with any of his symptoms. Patient did not take any regular morning medicines today. His only medications are for allergies, and Nexium as needed. No prior history of atrial fibrillation. However both his mom and dad have history of atrial fibrillation; his mom developed atrial fibrillation in her early 40s, and his father developed atrial fibrillation in his 50s. Additionally, the patient's father had significant cardiac issues; 4 MIs and a few strokes (none of which occurred before the age of 55). No family members have from cardiac related illness before the age of 55, to the patient's knowledge. Patient denies smoking, tobacco use, or recent alcohol use. He denies any alcohol use in the past several days; no history of heavy drinking. No new life stressors. No PMH of diabetes, CHF, ME, DVT/PE, stroke, thyroid issues, or HTN. He does have a history of sleep apnea, and reports good compliance with using his CPAP nightly. No supplemental oxygen at baseline. No sick contacts. Patient's vitals are stable at time admission; heart rate 96 bpm. ED course: NSS 500 mL IV x 2 Metoprolol tartrate 5 mg IV x 2 Metoprolol titrate 25 mg p.o. Aspirin 324 mg p.o. ROS: Patient endorses feeling hot upon waking, chest pain (resolved), and chest palpitations (resolved). Patient denies fever, chills, night-sweats, dizziness, lightheadedness, CHRISTINA, rashes, tick bites, pleuritic CP, SOB, cough, abdominal pain, N/V/D, changes in urinary/bowel habits, or numbness/tingling in the arms or legs. Discharge Exam General: A&Ox3. NAD. Cooperative. HEENT: Atraumatic, normocephalic. Vision and hearing grossly intact Pulm: CTAB A&P. -wheezes, -rales, -rhonchi. Symmetrical chest rise. No increased work of breathing. No respiratory distress. Cardiac: RRR, -mrg. Radial pulses intact and symmetrical. Discharge Plan Discharge Items Patient Disposition: Home - Self-Care Reason For Visit: NEW ONSET A FIB WITH RVR Discharge Diagnosis: Afib Activity: Resume your previous activity Weightbearing: Full weightbearing Non-emergency contact: Primary Care Provider Call non-emergency contact if: you have any medication questions, your symptoms worsen, your pain is not controlled and your temperature is above 101 Follow-up/Referrals: Pdailla Sullivan PA-C [Physician Sign Installer] - (New Patient - Afib ) Lore Guzman MD [Primary Care Provider] - (Follow up within one week ) Diet: Heart Healthy Addtl Attending Provider Instructions: Mr. Morrison, You were hospitalized after having chest pain and palpitations that awoke you from sleep. This was found to be from a heart arrhythmia called atrial fibrillation. Thankfully, with medication you heart rhythm has returned to normal and sustained. We discussed the utilization of anticoagulation with atrial fibrillation and for right now this is deferred. However, this may change as you follow up with cardiology or later on in life if you develop new comorbidities. A referral has been placed to [facility]. If you do not hear from them by mid- next week, please give the number above a call. Recommendations after discharge: * Start Metoprolol Succinate 50mg twice a day - first dose AM 3/16. If you notice that you are feeling lightheaded or dizzy, please talk to your PCP about this. * Start Aspirin 81mg daily (I have sent a prescription in for this, but it can be purchased over the counter, if it is not covered by your insurance). * Continue to use CPAP nightly * Follow up with PCP next week * Establish care with Cardiology, referral has been placed. Activity: You can do normal everyday activities as your body allows. Take rest breaks if you feel tired. Do not overexert. Stop activity if you have pain, shortness of breath or feel dizzy. CONTACT YOUR PRIMARY CARE PROVIDER if you experience any of the following: Shortness of breath or difficulty breathing Fevers or chills Feeling tired with normal activity or experiencing lightheadedness, dizziness or fainting Difficulty following your treatment plan, or difficulty taking medications CALL 911 OR GO TO THE EMERGENCY DEPARTMENT if you experience any of the following: Severe abdominal pain or nausea/vomiting Severe chest pain, or chest pain that radiates (moves) to your jaw or arm Sudden, severe shortness of breath or difficulty breathing Thank you for allowing us to participate in your care. Pending Studies at Discharge: No Stand-Alone Forms: My [facility], Smoking Cessation Medications and DC Order Prescriptions: New metoprolol succinate 50 mg Tablet Extended Release 24 Hr 50 mg PO BID 30 Days Qty: 60 0RF aspirin 81 mg Tablet,Delayed Release (Dr/Ec) 81 mg PO QAM 30 Days Qty: 30 0RF Continued cetirizine 10 mg tablet 10 mg PO DAILY PRN (Reason: allergy symptoms) Qty: 90 1RF esomeprazole magnesium [Nexium] 40 mg capsule,delayed release(DR/EC) 40 mg PO DAILY PRN (Reason: Acid Reflux) Qty: 90 3RF fluticasone propionate [Flonase Allergy Relief] 50 mcg/actuation spray,suspension 1 spray intranasal BID PRN (Reason: allergy symptoms) Qty: 16 5RF Rx Instructions: administer into each nostril montelukast [Singulair] 10 mg tablet 10 mg PO QPM PRN (Reason: allergic symptoms) Qty: 90 3RF Discharge Orders: Discharge Order (Routine); Ordered 08/20/24 Ordered By: Glenn Deluna/Other Patient Handouts: AFib Dc, AFib Admission Data Admit Date/Time: 08/20/24 12:45 Attending Provider: Glenn Rob Admit Provider: Glenn Rob Primary Care Provider: Lore Guzman V. Other Providers: Glenn Rob Hospital Stay Data Consultations 08/20/24 07:16 ED Decision to Admit Stat Pending Results Patient Have Any Pending Studies at Discharge: No Discharge Instructions Given to Patient (Per Discharging Provider) Mr. Morrison, Eleazar were hospitalized after having chest pain and palpitations that awoke you from sleep. This was found to be from a heart arrhythmia called atrial fibrillation. Thankfully, with medication you heart rhythm has returned to normal and sustained. We discussed the utilization of anticoagulation with atrial fibrillation and for right now this is deferred. However, this may change as you follow up with cardiology or later on in life if you develop new comorbidities. A referral has been placed to [facility]. If you do not hear from them by mid- next week, please give the number above a call. Recommendations after discharge: * Start Metoprolol Succinate 50mg twice a day - first dose AM 3/16. If you notice that you are feeling lightheaded or dizzy, please talk to your PCP about this. * Start Aspirin 81mg daily (I have sent a prescription in for this, but it can be purchased over the counter, if it is not covered by your insurance). * Continue to use CPAP nightly * Follow up with PCP next week * Establish care with Cardiology, referral has been placed. Activity: You can do normal everyday activities as your body allows. Take rest breaks if you feel tired. Do not overexert. Stop activity if you have pain, shortness of breath or feel dizzy. CONTACT YOUR PRIMARY CARE PROVIDER if you experience any of the following: Shortness of breath or difficulty breathing Fevers or chills Feeling tired with normal activity or experiencing lightheadedness, dizziness or fainting Difficulty following your treatment plan, or difficulty taking medications CALL 911 OR GO TO THE EMERGENCY DEPARTMENT if you experience any of the following: Severe abdominal pain or nausea/vomiting Severe chest pain, or chest pain that radiates (moves) to your jaw or arm Sudden, severe shortness of breath or difficulty breathing Thank you for allowing us to participate in your care. Total Time Total Time Spent Total Time Spent (In Minutes): Time spend day of discharge 35 minutes including direct patient care, documentation, review of labs and images, and coordination of care. This is in addition to same-day care providing H&P and original assessment and plan Coding Level of Care Code INP/OBS EV SAME DAY LV 3,85MIN Diagnoses New onset atrial fibrillation I48.91 Atrial fibrillation with rapid ventricular response I48.91 Sleep apnea G47.30
[2024-08-20 18:06] VITALS: PULSE 76
[2024-08-20] MEDS ORDERED: METOPROLOL SUCC 50MG EXT REL TAB PO SCH (21:00)
[2024-08-20] MEDS ORDERED: ENOXAPARIN INJ 40 MG/0.4 ML SYR SQ SCH (21:00)
[2024-08-21] MEDS ORDERED: ASPIRIN 81 MG ECTAB PO SCH (09:00)
--- NOTE | 2024-08-22 14:37 | Electrocardiogram Report ---
Test Reason : Blood Pressure : */* mmHG Vent. Rate : 130 BPM Atrial Rate : * BPM P-R Int : * ms QRS Dur : 72 ms QT Int : 306 ms P-R-T Axes : * 9 -4 degrees QTcB Int : 450 ms Atrial fibrillation with rapid ventricular response Abnormal ECG When compared with ECG of 20-Aug-2024 06:47, No significant change was found Confirmed by Marcelino Benavidez ([id number]) on 08/22/2024 2:37:20 PM Referred By: REFERRED SELF Confirmed By: Marcelino Benavidez
--- NOTE | 2024-08-22 14:37 | Electrocardiogram Report ---
Test Reason : Blood Pressure : */* mmHG Vent. Rate : 79 BPM Atrial Rate : 79 BPM P-R Int : 192 ms QRS Dur : 86 ms QT Int : 362 ms P-R-T Axes : 44 -4 22 degrees QTcB Int : 415 ms Normal sinus rhythm Normal ECG When compared with ECG of 20-Aug-2024 12:42, (unconfirmed) Sinus rhythm has replaced Atrial fibrillation Vent. rate has decreased by 51 bpm Confirmed by Marcelnio Benavidez ([id number]) on 08/22/2024 2:37:29 PM Referred By: REFERRED SELF Confirmed By: Marcelino Benavidez
== END 2024-08-20 18:40 | disposition home or self-care (01) | DRG 310 ==
LOC: ED 05:01 → 2E 12:45 → OBSVTOIN 12:45 → INTOOBSV 12:45 → 2E 13:46